=== PATIENT | female | born 2000 | race Caucasian/White ===

== ENCOUNTER 2021-11-06 20:06 | Emergency (ER) | payer SELFPAY ==
[~2021-11-06] VITALS: Ht 157.5 cm; Wt 54.4 kg
[2021-11-06 20:18] VITALS: BP 115/80
--- NOTE | 2021-11-06 20:48 | Diagnostic Imaging Report ---
EXAMINATION: Right ankle 3 views. HISTORY: Ankle pain. COMPARISON: None available. FINDINGS: There is an acute nondisplaced oblique fracture of the distal fibula. Linear radiolucency within the distal tibia. This does not extend to the cortex and is not seen on additional views. The joint spaces are normal. There is soft tissue swelling of the right ankle. IMPRESSION: 1. Acute nondisplaced oblique fracture of the distal fibula. 2. Indeterminate linear radiolucency within the distal tibia. This could represent a nondisplaced fracture or prominent nutrient channel. Dictated by: Dictated on workstation # [id number]
--- NOTE | 2021-11-06 21:30 | ED Lower Extremity ---
General Chief Complaint: Lower Extremity Stated Complaint: R ANKLE INJURY Nursing Triage Note: Pt arrives via POV from home for c/o right ankle pain/swelling after falling on the ice around 1900 tonight. 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 Swelling noted to the right ankle; extremity warm et dry, pulses et sensation intact. Source: patient Exam Limitations: no limitations History of Present Illness Date Seen by Provider: Nov 06, 2021 Time Seen by Provider: 20:17 Initial Comments This 21-year-old young lady presents to the emergency room by private vehicle with injury to the right ankle. She slipped on the ice and fell forward with her foot in a plantar flexed and inverted position. She has significant pain and swelling on the lateral aspect of her right ankle. She has not been able to bear weight or walk. The incident occurred about 1 to 2 hours prior to arrival. She denies any other injuries. Allergies and Home Medications Allergies Coded Allergies: No Known Allergies (Verified Allergy, Unknown, 11/12/05) Patient Home Medication List Home Medication List Reviewed: Yes Hydrocodone/Acetaminophen (Hydrocodone-Acetamin 5-325 mg) 1 Each Tablet, 1 TAB PO Q4H PRN for PAIN-MODERATE (5-7) Prescribed by: GAY FALCON on 11/06/21 3082 Review of Systems Constitutional: no symptoms reported EENTM: no symptoms reported Respiratory: no symptoms reported Cardiovascular: no symptoms reported Gastrointestinal: no symptoms reported Genitourinary: no symptoms reported : No Musculoskeletal: see HPI Skin: no symptoms reported Psychiatric/Neurological: No Symptoms Reported Past Ijlbadb-Akhqfx-Zipqlf Hx Patient Social History Tobacco Use?: No Use of E-Cig and/or Vaping dev: No Substance use?: No Alcohol Use?: No Pt feels they are or have been: No Immunizations Up To Date COVID19 Vaccine [employer] 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 oz. kg; 21.00 BMI Method: General Appearance: WD/WN, no apparent distress HEENT: normal ENT inspection Cardiovascular: regular rate, rhythm, no edema, no murmur Respiratory: lungs clear, normal breath sounds, no respiratory distress Knees: right knee non-tender, right knee normal inspection, right knee normal range of motion, right knee no evidence of injury Ankles: right ankle bone tenderness (Over the lateral malleolus), right ankle limited range of motion, right ankle pain, right ankle swelling (Over the lateral malleolus), right ankle other (Pedal pulses palpable. There is pain, tenderness, and swelling over the lateral malleolus. Distal exam of the foot is unremarkable.) Neurologic/Psychiatric: no motor/sensory deficits, alert, normal mood/affect, oriented x 3 Skin: normal color, warm/dry Procedures/Interventions Splinting and Joint Reduction : Pre-Proc Neuro Vasc Exam: normal Post-Proc Neuro Vasc Exam: normal Pre-Procedure NV Exam: Yes Ordered: Crutches Hand-Made Type: fiberglass Splint Application: Short Leg (Posterior plus lateral stirrup) Progress/Results/Core Measures Results/Orders My Orders Orders - GAY MEZA MD Ankle, Right, 3 Views (11/06/21 20:28) Ct Extremity Lower Right Wo (11/06/21 21:17) Rx-Hydrocodone/Apap 5-325 Mg (Rx-Vicodin (11/06/21 22:45) Crutches (11/06/21 22:41) Vital Signs/I&O 11/06/21 20:18 Temp 36.7 Pulse 67 Resp 18 B/P (MAP) 115/80 (92) Pulse Ox 100 O2 Delivery Room Air Blood Pressure Mean: 92 Progress Progress Note #1: Time: 21:29 Progress Note Patient is not requiring any pain medication at this time. Ankle x-rays were obtained and reveal a nondisplaced oblique fracture of the distal fibula. There is lucency within the distal tibia as well. Prominent nutrient line versus fracture is questioned. CT is being obtained for further review. Progress Note #2: Progress Note CT revealed a trimalleolar fracture. This was discussed with Dr. Taylor. He agrees with a three-way splint and follow-up in the clinic. Splint was applied and crutches were dispensed. A take-home bottle of hydrocodone was dispensed. See discharge instructions for further discussion. Diagnostic Imaging Diagonstic Imaging: Xray Plain Films/CT/US/NM/MRI: ankle Comments Right ankle x-ray viewed by me and report reviewed. See report below: NAME: NATALIO REY [facility], [place] REC#: [id number] PT STATUS: REG ER : 2000 PHYSICIAN: GAY MEZA MD ADMIT DATE: 11/06/21/ER Signed Date of Exam:11/06/21 ANKLE, RIGHT, 3 VIEWS EXAMINATION: Right ankle 3 views. HISTORY: Ankle pain. COMPARISON: None available. FINDINGS: There is an acute nondisplaced oblique fracture of the distal fibula. Linear radiolucency within the distal tibia. This does not extend to the cortex and is not seen on additional views. The joint spaces are normal. There is soft tissue swelling of the right ankle. IMPRESSION: 1. Acute nondisplaced oblique fracture of the distal fibula. 2. Indeterminate linear radiolucency within the distal tibia. This could represent a nondisplaced fracture or prominent nutrient channel. Dictated by: Dictated on workstation # [id number] Dict: 11/06/212042 Trans: 11/06/212047 [facility] [id number] Interpreted by: JHONNY GREWAL DO Electronically signed by: JHONNY GREWAL DO 11/06/212047 Diagonstic Imaging: CT Plain Films/CT/US/NM/MRI: ankle Comments CT ankle viewed by me and report reviewed. See report below: NAME: NATALIO REY [facility] [place] REC#: [id number] PT STATUS: REG ER : 2000 PHYSICIAN: GAY MEZA MD ADMIT DATE: 11/06/21/ER Signed Date of Exam:11/06/21 CT EXTREMITY LOWER RIGHT WO PROCEDURE: CT right lower extremity without contrast. TECHNIQUE: Axially acquired CT was obtained through the right lower extremity without intravenous contrast. Coronal and sagittal reformations were also performed. Auto Exposure Controls were utilized during the CT exam to meet ALARA standards for radiation dose reduction. INDICATION: Right ankle fracture There is a trimalleolar fracture of the ankle. The distal tibial fracture is comminuted. Fracture extends to the articular surface medially through the medial malleolus as well as posterior and posterolaterally through the dorsal cortex of the bone. It is nondisplaced. There is also an oblique fracture of the distal fibular shaft. Ankle mortise is not widened. IMPRESSION: Comminuted nondisplaced trimalleolar fracture of the right ankle Dictated by: Dictated on workstation # [id number] Dict: 11/06/212136 Trans: 11/06/212139 TCB [id number] Interpreted by: VIV GREWAL MD Electronically signed by: VIV GREWAL MD 11/06/212139 Departure Impression Primary Impression: Trimalleolar fracture of right ankle Qualified Codes: S82.851A - Displaced trimalleolar fracture of right lower leg, initial encounter for closed fracture Additional Impression: Fall on same level Qualified Codes: W18.30XA - Fall on same level, unspecified, initial encounter Disposition: HOME, SELF-CARE Condition: Improved Departure-Patient Inst. Decision time for Depature: 21:50 Referrals: NO,LOCAL PHYSICIAN (PCP) Primary Care Physician LENI TAYLOR MD Patient Instructions: Ankle Fracture, SPLINT CARE Add. Discharge Instructions: Follow-up with Dr. Taylor or the orthopedist of your choice as soon as possible. His contact information is listed below. Please call him in the morning to arrange follow-up. Elevation above the level of your heart and icing in 20-minute intervals should help with pain and swelling. Use your hydrocodone pain medication as prescribed. This medication may cause drowsiness and constipation. You may wish to use a stool softener to prevent constipation while taking this medication. Keep your splint clean and dry. Do not weight-bear on your right foot. Walk with crutches. Call with questions or concerns. Return to the ER if you would like your ankle reevaluated or splint adjusted, or have any other worsening conditions. All discharge instructions reviewed with patient and/or family. Voiced understanding. Scripts Hydrocodone/Acetaminophen (Hydrocodone-Acetamin 5-325 mg) 1 Each Tablet 1 TAB PO Q4H PRN for PAIN-MODERATE (5-7), #30 TAB Prov: GAY MEZA MD 11/06/21 Copy Copies To 1: LENI TAYLOR MD, JOSHUA T MD Nov 06, 2021 21:30
--- NOTE | 2021-11-06 21:41 | Diagnostic Imaging Report ---
PROCEDURE: CT right lower extremity without contrast. TECHNIQUE: Axially acquired CT was obtained through the right lower extremity without intravenous contrast. Coronal and sagittal reformations were also performed. Auto Exposure Controls were utilized during the CT exam to meet ALARA standards for radiation dose reduction. INDICATION: Right ankle fracture There is a trimalleolar fracture of the ankle. The distal tibial fracture is comminuted. Fracture extends to the articular surface medially through the medial malleolus as well as posterior and posterolaterally through the dorsal cortex of the bone. It is nondisplaced. There is also an oblique fracture of the distal fibular shaft. Ankle mortise is not widened. IMPRESSION: Comminuted nondisplaced trimalleolar fracture of the right ankle Dictated by: Dictated on workstation # [id number]
[2021-11-06] MEDS ORDERED: ACHD5005 PO (22:46)
== END 2021-11-06 23:29 | disposition home or self-care (01) ==
LOC: EDUNIT# 20:06 → ER 20:09
DX: S82.851A Displaced trimalleolar fracture of right lower leg, initial encounter for closed fracture (principal); W18.30XA Fall on same level, unspecified, initial encounter
CPT/HCPCS: 27840; 29515; 73610; 73700